=== PATIENT | male | born 1955 | race Caucasian/White ===

== ENCOUNTER 2018-07-26 06:09 | Inpatient (IN) | payer OTHER, MEDICARE, SELFPAY ==
[2018-07-13 12:46] VITALS: BMI 28.8
[2018-07-26] VITALS (12 sets, daily range): BP systolic 99–164; BP diastolic 55–109; PULSE 56–87; RESP 12–19; TEMP 36.4–37.1; O2SAT 93–97; BMI 28.8
--- NOTE | 2018-07-26 06:30 | DI.RAD.S_ITS ---
PROCEDURE: XR KNEE RT 1TO2V INDICATIONS: prosthesis placement right total knee TECHNIQUE: 2 view(s) of the knee acquired. [facility], JUANA, XR KNEE ARTHRITIC SERIES RT, 05/09/2018, 10:44. FINDINGS: Bones: Patient is status post knee joint arthroplasty. Hardware components are in expected positions. Visualized bony structures are intact. Soft tissues: Overlying postoperative changes are noted. Expected postsurgical changes are identified within the overlying soft tissues with areas of soft tissue air, edema, and fluid. No unexpected radiopaque foreign bodies are evident. IMPRESSION: Expected post surgical changes related to a total right knee arthroplasty. Dictated by: Wei Aquino M.D. on 07/26/2018 at 11:18 Approved by: Wei Aquino M.D. on 07/26/2018 at 11:19
[2018-07-26] MEDS: LACTATED RINGERS 1,000 ML 42 ML IV ×2 (07:00→09:19)
[2018-07-26] MEDS: ACETAMINOPHEN 325 MG TABLET 975 MG PO ×2 (07:12→13:38)
[2018-07-26] MEDS: CELECOXIB 200 MG CAPSULE PO (07:13)
[2018-07-26] MEDS: PREGABALIN 75 MG CAPSULE PO (07:13)
--- NOTE | 2018-07-26 07:30 | PC.NURSE ---
Day shift: Pt not on this AC unit at this time 0730.
--- NOTE | 2018-07-26 07:45 | PM.PREOP ---
Pre-operative Note Interval Note Pre-op Check: Yes History & Physical Reviewed by Physician and Yes Exam Performed Changes: No
--- NOTE | 2018-07-26 07:47 | P.OP_ITS ---
Operative Date/Time/Diagnoses Date of procedure: 07/26/18 Time of procedure: 09:25 Pre-op diagnosis: Right knee osteoarthritis Post-op diagnosis: same Procedure & Clinicians Procedure: Right total knee replacement Same procedure as scheduled: Yes Indications: The patient has had progressively worsening right knee pain with radiographic changes consistent with arthritis. Non-operative management has failed and the patient has requested total knee replacement. The risks, benefits and alternatives to surgery were discussed with the patient prior to proceeding. Risks discussed included, but were not limited to, failure to relieve pain, stiffness, infection, nerve damage, deep venous thrombosis, pulmonary embolism, stroke, coma, heart attack, permanent paralysis and , as well as the potential need for eventual revision of the prosthetic. Surgeon: Juanito Lima Care Professional: Aisha Johansen Click Yes if Unassisted: No Anesthesia Type: General, Spinal and Local Operative Notes Findings: Significant medial and moderate patellofemoral osteoarthritis. Closure Type: primary Specimen(s): none sent Implants & Drains: Implants used in this procedure were manufactured by the [employer] and [employer] and included the BCS II Journey total knee replacement with a size 6 Oxinium right femoral component, size 5 right non porous tibial component, 10 mm cross-linked BCS II tibial insert, and a 32 mm oval Joanna II patellar component. Applied: implant(s) Estimated Blood Loss (mL): 150 Blood products transfused: none Tourniquet time (min): 57 Procedure in detail: The patient was seen in the pre-operative area, where the patient identified the right knee as the operative site and this was marked with my initials. The patient received pre-operative antibiotics with an appropriate 1st generation cephalosporin, and was taken to the operating room and placed on the operative table in the supine position. After satisfactory anesthesia, a multimedia coordinator out was performed. The right leg was encircled with a tourniquet about the proximal thigh, and the leg was prepared from the toes to the tourniquet with ChloroPrep in the usual fashion and draped through sterile drapes. The leg was elevated and exsanguinated with Eschmark bandage and the tourniquet inflated to 250 mmHg pressure. The knee was approached through an approximately 18 cm incision centered over the patella and carried into the knee through a medial parapatellar arthrotomy. The anterior osteophytes and soft tissues were removed. The rotational landmarks of Steuben's line and the transepicondylar axis were marked on the femur with electrocautery, and intramedullary guide holes for the femur and tibia were created. The distal femoral cut was made in 6 degrees of valgus using the intramedullary guide at the primary cut setting. The proximal tibial cut was then made using the intramedullary guide, taking 9 mm of bone off the less involved side. The extension gap was checked and the rotation of the femoral component confirmed with the gap balancing system. The anterior, posterior and chamfer cuts were then made. The posterior osteophytes and soft tissues were then removed. The posterior capsule was injected with part of a mixture of 60 ml 0.25% Marcaine mixed with 20 ml Exparel and 4 mg of morphine for post-operative pain control. The remainder of this mixture was injected into the capsule and subcutaneous tissues during cement curing. The tibia was prepared with the rotation set by an extra medullary guide. Trial tibial and femoral components were then placed and the intercondylar notch cut through the femoral trial. Range of motion was 0-135 degrees, with good stability throughout the range. The patella was then cut to accommodate the patellar prosthetic. There was no need for a lateral release. The trials were then removed, and the femoral hole plugged with a bone plug. The bone was prepared with pulsatile lavage, and dried with a sponge. Cement was applied and the final prosthetics placed. Excess cement was removed during and after cement curing. After confirming there was no extruded cement posteriorly, the final tibial insert was placed. The knee was copiously irrigated and the tourniquet deflated. Hemostasis was obtained. The capsule was closed with interrupted # 2 polyester suture. The subcutaneous layer was closed with 3-0 Vicryl, and the skin with a running 3-0 V-Lock suture and SteriStrips. An Aquacel Ag dressing was applied and the patient was taken to recovery having tolerated the procedure well. Complications: none Condition: stable Disposition: PACU Plan for aftercare: The patient will be maintained on a standard total knee replacement protocol with weight bearing as tolerated. The patient will receive aspirin and sequential compression devices for DVT prophylaxis. The patient will be discharged home when safe for the home environment.
[2018-07-26] MEDS: CEFAZOLIN 2 GM/100 ML FROZ.PIGGY IV ×2 (07:53→15:40)
[2018-07-26] MEDS: TRANEXAMIC ACID 1,000 MG VIAL 1000 MG INJ ×2 (08:05→09:13)
--- NOTE | 2018-07-26 08:22 | SUR.OPER ---
Supine on padded OR bed. Pillow under head, arms secured on padded armboards <90 degree abduction. Safety belt across torso. Non-operative leg secured with tape over blanket over lower leg. Operative leg secured in DeMayo/Jeevan positioner.
[2018-07-26] MEDS: BUPIVACAINE 0.25% W/ EPI VIAL 50 ML INJ (08:31)
[2018-07-26] MEDS: MORPHINE 4 MG/ML INJ IV (08:31)
[2018-07-26] MEDS: BUPIVACAINE LIPOSOME 266 MG/20 ML VIAL INJ (08:32)
--- NOTE | 2018-07-26 10:49 | PC.NURSE ---
Day shift: Arrived on unit from PACU at approx 1045. A&Ox3. Denies any pain, chest pain or SOB. Rt leg ERA wrapped and Aquacel. Tolerating liquids. He stated that he wants to go home for sure today. Oriented to room and call light. Agrees to not get OOB w/o help from staff. PPP amd CMS ok in LLE and minimal sensation at this time RLE/foot/adams.
[2018-07-26] MEDS: LACTATED RINGERS 1,000 ML 125 ML IV (11:27)
[2018-07-26] MEDS: OXYCODONE IR 5 MG TABLET PO ×2 (11:27→12:05)
[2018-07-26] MEDS: IBUPROFEN 600 MG TABLET PO (11:34)
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
== END 2018-07-26 16:20 | disposition home or self-care (01) | DRG 470 ==
PROVIDERS: Admitting Provider Physician Assistant; Visit Provider Orthopaedic Surgery
PROC: 0SRC0JZ Replacement of Right Knee Joint with Synthetic Substitute, Open Approach (ICD-10-PCS; CPT 27447; principal; 2018-07-26 07:45)
DX: M17.11 Unilateral primary osteoarthritis, right knee (principal); F17.210 Nicotine dependence, cigarettes, uncomplicated
CPT/HCPCS: 73560; 97161; 97530; C1776; C9290; J0690; J1100; J2250; J2270; J2405; J2704; J3010

== ENCOUNTER 2018-12-19 09:27 | Inpatient (IN) | payer OTHER, MEDICARE, SELFPAY ==
[2018-07-26 11:07] VITALS: BMI 28.8
[2018-12-16 08:39] VITALS: BMI 27.8
[2018-12-19] VITALS (16 sets, daily range): BP systolic 116–155; BP diastolic 71–99; PULSE 71–94; RESP 13–20; TEMP 36.4–36.9; O2SAT 91–99; BMI 27.1
--- NOTE | 2018-12-19 | DI.RAD.S_ITS ---
PROCEDURE: XR LUMBAR SPINE 2-3V INDICATIONS: L5-S1 TLIF TECHNIQUE: 2 views of the lumbar spine were acquired. COMPARISON: None. FINDINGS: Bones: Expected postoperative alignment after L5-S1 fusion procedure with transverse pedicle screws and vertical fixation rods crossing L5-S1. An interbody disc prosthesis, cage type, is present at the L5-S1 disc space. Soft tissues: Overlying bowel gas pattern is normal. No suspicious soft tissue calcifications. IMPRESSION: Normal alignment after fusion procedure at L5-S1 with interbody disc cage prosthesis. Dictated by: Evgeny Becker M.D. on 12/19/2018 at 15:06 Approved by: Evgeny Becker M.D. on 12/19/2018 at 15:07
[2018-12-19] MEDS: LACTATED RINGERS 1,000 ML 42 ML IV ×2 (09:58→14:28)
--- NOTE | 2018-12-19 10:18 | SUR.PREOP ---
pt reports has numbness and tingling in all four extremities that is chronic and baseline for him.
[2018-12-19] MEDS: CEFAZOLIN 2 GM/100 ML FROZ.PIGGY IV ×2 (12:26→21:31)
--- NOTE | 2018-12-19 13:00 | SUR.OPER ---
Prone on spine table, head in foam head support, padded chest and pelvic supports, gel pad at knees, lower legs supported by pillows; nipples, genitalia and toes free of pressure, arms secured on foam padded arm boards at <90 degrees abduction. Tape over blanket at thigh secured to table.
[2018-12-19] MEDS: BUPIVACAINE LIPOSOME 266 MG/20 ML VIAL INJ (13:11)
[2018-12-19] MEDS: BUPIVACAINE 0.25% W/ EPI 30 ML VIAL INJ (13:11)
[2018-12-19] MEDS: ACETAMINOPHEN IV 1,000 MG/100 ML VIAL 400 MG IV (13:45)
--- NOTE | 2018-12-19 15:09 | PM.OP.1 ---
Operative Date/Time/Diagnoses Date of procedure: 12/19/18 Time of procedure: 12:11 Pre-op diagnosis: 1. L4-5, L5-S1 spondylosis with radiculopathy 2. L4-5, L5-S1 spinal stenosis with history of L5-S1 laminectomy Post-op diagnosis: same Procedure & Clinicians Procedure: 1. L5-S1 Postero-lateral and posterior interbody fusion 2. L5-S1 interbody cage placement. 3. L5-S1 decompressive laminectomy with bilateral facetecomies 4. L5-S1 Posterior non-segmental instrumentation 5. L4-5 right hemilaminectomy 6. [employer] of bone marrow from iliac crest 7. Utilization of microsurgical technique and operating microscope Same procedure as scheduled: Yes Indications: Patient has been having chronic back pain and worsening lumbar radiculopathy. Patient failed multiple conservative management with worsening pain weakness and numbness in her lower extremity. Patient has been having difficulty performing activity of daily living. After discussing risks benefits of treatment options, patient elected proceed with surgery. Surgeon: Michelle Lin Server Assistant: Maura Pimentel Click Yes if Unassisted: No Anesthesia Type: General Operative Notes Closure Type: primary Specimen(s): none sent Prosthetic devices, grafts, tissues, transplants, or devices: Globus revolve screws, Rise cage Estimated Blood Loss (mL): 50 Blood products transfused: none Procedure in detail: Patient was seen in the preoperative area. Risks and benefits of the surgery was discussed with the patient. Informed consent was obtained from the patient and placed in the chart. Surgical site was marked. Patient was taken to the operative room. General anesthesia was administered. Prophylactic antibiotic was given to the patient less than 30 min before the incision was made. Patient was placed into a prone position on the Vadim table. Patient's back was then prepped and draped in the sterile fashion. Time-out was performed at this time. Using AP and lateral C-arm imaging the interval between L4-5, L5-S1 was identified and marked on patient's back. A 2 inch incision 2 in from midline was made on the right side first. The fascia was incised in line with skin incision. Globus MARS retractors was placed inside the incision and docked onto the L5 lamina. Using microsurgical technique and operating microscope, a L5 laminectomy and L5-S1 facetectomy was performed using a Kerrison rongeur. The disc space at L5-S1 was identified. And a total diskectomy was performed at L5-S1 level. The endplates were decorticated using a rasp and shaver. The total diskectomy and decortication was performed at L5-S1 level in order to to accomplish a L5-S1 fusion. The local bone from the laminectomy and facetectomy was saved for local bone grafting. After the total diskectomy and decortication was completed, Bio4 bone graft material was combined with local bone that was harvested earlier. At this time, a separate skin is incision was made over the iliac crest. A Jamshidi needle was inserted into the iliac crest through a separate skin incision. 5 cc of bone marrow aspiration was obtained through the separate skin incision using a Jamshidi needle from the iliac crest. The bone marrow aspiration was combined with local bone and the Bio4 bone grafting material. The bone grafting material was placed into the L5-S1 interbody space along with a expandable cage. The cage was expanded to its maximum height using the torque limiting screwdriver. At this time the MARS retractor was redirected over the L4 lamina. Using microsurgical technique and operating microscope, a L4-5 heminectomy was performed using the Kerrison rongeur. The ligamentum flavum was also resected at the side of the hemilaminectomy for further decompression of the epidural space. At this time a mirror image incision was made on the left side. The fascia was incised in line with the skin incision. Globus MARS retractor was inserted and docked onto the L5-S1 posterolateral gutter. Using the power drill, posterior-lateral decortication was performed at L5-S1 level until bleeding cortical bone was identified. The remaining bone grafting material was placed into the L5-S1 posterior lateral gutter he order to accomplish posterolateral fusion at the L5-S1 level. Using the double C-arm technique, pedicle screws were placed into the L5 and S1 pedicles bilaterally. This was done by placing the Jamshidi needle into the pedicles, then placing the guidewires over the Jamshidi needle, and finally placing the cannulated screws over the guidewires bilaterally. After the pedicle screws were placed, 2 titanium rods was locked into the heads of the pedicle screws using locking caps and torque limiting screwdriver. After all the hardware was placed, and confirmed with AP and lateral C-arm imaging, the wound was then irrigated with sterile normal saline and packed with Ray-Dorothy gauze for 3 min to accomplish hemostasis. After the gauze was removed the deep fascia was closed with #1 Vicryl suture. The subcutaneous layer was closed with 2-0 Vicryl. The skin was closed with skin tex. Patient tolerated the procedure well. There were no complications. Complications: none Condition: stable Disposition: PACU Plan for aftercare: Admit to inpatient hospital
--- NOTE | 2018-12-19 15:15 | P.OP_ITS ---
Operative Date/Time/Diagnoses Date of procedure: 12/19/18 Time of procedure: 12:11 Pre-op diagnosis: 1. L4-5, L5-S1 spondylosis with radiculopathy 2. L4-5, L5-S1 spinal stenosis with history of L5-S1 laminectomy Post-op diagnosis: same Procedure & Clinicians Procedure: 1. L5-S1 Postero-lateral and posterior interbody fusion 2. L5-S1 interbody cage placement. 3. L5-S1 decompressive laminectomy with bilateral facetecomies 4. L5-S1 Posterior non-segmental instrumentation 5. L4-5 right hemilaminectomy 6. [place] of bone marrow from iliac crest 7. Utilization of microsurgical technique and operating microscope Same procedure as scheduled: Yes Indications: Patient has been having chronic back pain and worsening lumbar radiculopathy. Patient failed multiple conservative management with worsening pain weakness and numbness in her lower extremity. Patient has been having difficulty performing activity of daily living. After discussing risks benefits of treatment options, patient elected proceed with surgery. Surgeon: Michelle Lin Mailing Specialist: Maura Pimentel Click Yes if Unassisted: No Anesthesia Type: General Operative Notes Closure Type: primary Specimen(s): none sent Prosthetic devices, grafts, tissues, transplants, or devices: Globus revolve screws, Rise cage Estimated Blood Loss (mL): 50 Blood products transfused: none Procedure in detail: Patient was seen in the preoperative area. Risks and benefits of the surgery was discussed with the patient. Informed consent was obtained from the patient and placed in the chart. Surgical site was marked. Patient was taken to the operative room. General anesthesia was administered. Prophylactic antibiotic was given to the patient less than 30 min before the incision was made. Patient was placed into a prone position on the Vadim table. Patient's back was then prepped and draped in the sterile fashion. Time- out was performed at this time. Using AP and lateral C-arm imaging the interval between L4-5, L5-S1 was identified and marked on patient's back. A 2 inch incision 2 in from midline was made on the right side first. The fascia was incised in line with skin incision. Globus MARS retractors was placed inside the incision and docked onto the L5 lamina. Using microsurgical technique and operating microscope, a L5 laminectomy and L5-S1 facetectomy was performed using a Kerrison rongeur. The disc space at L5-S1 was identified. And a total diskectomy was performed at L5- S1 level. The endplates were decorticated using a rasp and shaver. The total diskectomy and decortication was performed at L5-S1 level in order to to accomplish a L5-S1 fusion. The local bone from the laminectomy and facetectomy was saved for local bone grafting. After the total diskectomy and decortication was completed, Bio4 bone graft material was combined with local bone that was harvested earlier. At this time, a separate skin is incision was made over the iliac crest. A Jamshidi needle was inserted into the iliac crest through a separate skin incision. 5 cc of bone marrow aspiration was obtained through the separate skin incision using a Jamshidi needle from the iliac crest. The bone marrow aspiration was combined with local bone and the Bio4 bone grafting materi al. The bone grafting material was placed into the L5-S1 interbody space along with a expandable cage. The cage was expanded to its maximum height using the torque limiting screwdriver. At this time the MARS retractor was redirected over the L4 lamina. Using microsurgical technique and operating microscope, a L4-5 heminectomy was performed using the Kerrison rongeur. The ligamentum flavum was also resected at the side of the hemilaminectomy for further decompression of the epidural space. At this time a mirror image incision was made on the left side. The fascia was incised in line with the skin incision. Globus MARS retractor was inserted and docked onto the L5-S1 posterolateral gutter. Using the power drill, posterior- lateral decortication was performed at L5-S1 level until bleeding cortical bone was identified. The remaining bone grafting material was placed into the L5-S1 posterior lateral gutter he order to accomplish posterolateral fusion at the L5- S1 level. Using the double C-arm technique, pedicle screws were placed into the L5 and S1 pedicles bilaterally. This was done by placing the Jamshidi needle into the pedicles, then placing the guidewires over the Jamshidi needle, and finally placing the cannulated screws over the guidewires bilaterally. After the pedicle screws were placed, 2 titanium rods was locked into the heads of the pedicle screws using locking caps and torque limiting screwdriver. After all the hardware was placed, and confirmed with AP and lateral C-arm imaging, the wound was then irrigated with sterile normal saline and packed with Ray-Dorothy gauze for 3 min to accomplish hemostasis. After the gauze was removed the deep fascia was closed with #1 Vicryl suture. The subcutaneous layer was closed with 2-0 Vicryl. The skin was closed with skin tex. Patient tolerated the procedure well. There were no complications. Complications: none Condition: stable Disposition: PACU Plan for aftercare: Admit to inpatient hospital
[2018-12-19] MEDS: HYDROMORPHONE 2 MG INJ 0.5 MG IV ×3 (15:30→15:51)
--- NOTE | 2018-12-19 15:53 | SUR.PHASEI ---
1551 Rx x3 for back pain, patient states that it is much better than the leg pain he endured pre-operatively. Patient awake, oriented, pleasant, tolerating PO well/no nausea. Skin warm and dry, resp even and regular.
--- NOTE | 2018-12-19 16:08 | SUR.PHASEI ---
1540 late entry + strength/motion/sensation in LE. States that his leg pain is much better than it was pre-operatively.
--- NOTE | 2018-12-19 16:13 | SUR.PHASEI ---
Error - did not realize that there were multiple pain sites to document; patient denies knee pain.
--- NOTE | 2018-12-19 16:33 | SUR.PHASEI ---
1618 to room 203; bed down and locked, call light within reach. Clothing bag and dentures (labeled) to room with patient. He declined to put them in and wanted them taken to the room in the container. SCDs on, VSS, A&O, resp unlabored, skin warm and dry, IV site unchanged. No questions from patient or staff report updated w/RN.
[2018-12-19] MEDS: SODIUM CHLORIDE 0.9% 1,000 ML 100 ML IV (17:22)
[2018-12-19] MEDS: OXYCODONE IR 5 MG TABLET 10 MG PO ×2 (17:32→21:35)
--- NOTE | 2018-12-19 18:20 | PC.NURSE ---
Addendum entered by Colleen Stockton R.N. 12/19/18 21:59: Pt refusing SCD's at HS. IVF continue as per orders. Dsg CDI Med @ 2135 w/oxycodone for discomfort. Stable post op course. Call light w/in reach, bed alarm on for pt safety. Continue w/plan of care. Addendum entered by Colleen Stockton R.N. 12/19/18 18:40: IS teaching, pt reached 3500 w/o incidnece. Original Note: Pt arrived from PACU @ 1626, Alert/oriented. IVF infusing into the LFA via pump as per orders. Dsg to back CDI. Lungs clear, SpO2 98% RA Foot SCD in place. Call light w/in reach.
[2018-12-19] MEDS: NICOTINE 14 PATCH 14 MG TOP (18:31)
--- NOTE | 2018-12-20 01:04 | PC.NURSE ---
2300- Pt POD#0 LAMI w/ 3 surgical dressings present on the back CDI. Pt has not moved OOB yet, waiting for PT in the AM. A+Ox4 w/ NS running as ordered into L forearm. Pt voiding in urinal w/o difficulty; VSS on RA; denies pain. 0030- IV fluids shut off per pt's request & protocol. Taking PO intake w/o nausea.
[2018-12-20 05:10] VITALS: BP 136/78; PULSE 75; RESP 15; TEMP 36.9; O2SAT 98
[2018-12-20] MEDS: CEFAZOLIN 2 GM/100 ML FROZ.PIGGY IV (05:12)
[2018-12-20 06:20] LABS: Hematocrit 40.9 % (41-53); Hemoglobin 14.1 g/dL (13.5-17.5)
--- NOTE | 2018-12-20 07:28 | PM.PNPO.1 ---
Subjective Date Patient Seen: 12/20/18 Exam Vital Signs (past 8 hours): - 12/19/18 23:30 12/19/18 23:37 12/20/18 05:10 Temperature 98.4 F 98.2 F 98.5 F Pulse Rate 94 H 71 75 Respiratory Rate 17 18 15 Blood Pressure 142/80 H 128/71 136/78 Pulse Oximetry 93 95 98 Oxygen Delivery Method Room Air Oxygen Flow Rate 0 Narrative Exam Narrative: Well-developed, well-nourished, no acute distress. Alert and oriented to person, place, and time. Dressing on lumbar spine is clean, dry, and intact with no signs of drainage. Minimal erythema and generalized swelling around the surgical site. Neurovascularly intact in bilateral lower extremities with soft and compressible calves. Range of motion intact bilateral lower extremities. Objective Labs Result Diagrams: 12/20/18 05:56 Labs: Laboratory Results - last 24 hr 12/20/18 05:56 Hgb 14.1 Hct 40.9 L Assessment & Plan Post-op Postoperative Procedures Operation Date: 12/19/18 11:45 Actual Procedures Side Surgeon p L4-5 Hemilaminectomy, L5-S1 TLIF w/posterior instrumentation Not Applicable Michelle Lin MD 1. POD #1 s/p above procedure-PT/OT, pain control. Quality VTE Deep Vein Thrombosis/Pulmonary Embolism Present on Admission: No
[2018-12-20 07:35] VITALS: BP 165/92; PULSE 75; RESP 16; TEMP 36.6; O2SAT 99
--- NOTE | 2018-12-20 07:46 | PM.DS.1 ---
History of Present Illness Date Patient Seen: 12/20/18 Chief complaint: [id number] Narrative: Patient seen bedside s/p R. L4-5 hemilamenectomy and L5-S1 TLIF by Dr. Lin on 12/19/18. Patient is POD #1. He is doing well, is currently not needing pain medication and is ambulating well with his walker. He has expressed understanding of his lumbar restrictions. Denies N/V, CP, SOB, and calf pain. He would like to go home today. Discharge Providers Date of admission: 12/19/18 09:27 Discharge Date: 12/20/18 Consults: 12/16/18 09:52 Consult to Respiratory Therapy Evaluate & Treat Comment: Physician Instructions: Evaluate and treat Consult to Flash Ranging Crewmember Routine Comment: 12/19/18 10:10 Consult to Respiratory Therapy Evaluate & Treat Comment: Physician Instructions: Evaluate and treat 12/19/18 17:02 Consult to Occupational Therapy Evaluate & Treat Comment: Physician Instructions: Evaluate and treat Consult to Physical Therapy Evaluate & Treat Comment: Physician Instructions: Evaluate and Treat Discharge provider: Aisha Johansen PA-C Summary Discharge Diagnosis: 1. L4-5, L5-S1 spondylosis with radiculopathy 2. L4-5, L5-S1 spinal stenosis with history of L5-S1 laminectomy Hospital Course: Patient admitted to the hospital s/p L4-5 right hemilaminectomy and L5-S1 TLIF on 12/19/18. Patient tolerated the procedure well with no major complications. They were transferred to the acute care floor where they were placed on the standard lumbar fusion post-operative pathway and protocol. They were seen by physical therapy who recommended that they be discharged home. They were stable and ready for discharge on 12/20/18. Exam Vital Signs (past 8 hours): - 12/20/18 05:10 Temperature 98.5 F Pulse Rate 75 Respiratory Rate 15 Blood Pressure 136/78 Pulse Oximetry 98 Oxygen Delivery Method Room Air Oxygen Flow Rate 0 Narrative Exam Narrative: Well-developed, well-nourished, no acute distress. Alert and oriented to person, place, and time. Dressing on lumbar spine is clean, dry, and intact with no signs of drainage. Minimal erythema and generalized swelling around the surgical site. Neurovascularly intact in bilateral lower extremities with soft and compressible calves. Range of motion intact bilateral lower extremities. Objective Labs Result Diagrams: 12/20/18 05:56 Labs: Laboratory Results - last 24 hr 12/20/18 05:56 Hgb 14.1 Hct 40.9 L Discharge Plan Discharge Plan Patient Disposition: Home Discharge Med Rec/Prescriptions Prescriptions: New acetaminophen 325 mg Tablet 650 mg PO Q6HR PRN (Reason: Pain, Mild (1-3)) Qty: 0 RF: 0 docusate sodium [DOK] 100 mg Capsule 100 mg PO BID Qty: 0 RF: 0 oxycodone 5 mg Tablet 5 mg PO Q4HR PRN (Reason: pain) Qty: 40 RF: 0 hydroxyzine pamoate 25 mg Capsule 25 mg PO Q4HR PRN (Reason: muscle spasm) Qty: 50 RF: 0 Follow up/Referrals: Michelle Lin MD [Physician] - (on 12/30/18 at your previously scheduled post-operative appointment.) Provider Discharge Instructions Diet: Diet as Tolerated Activity: Weightbearing as tolerated, no bending, lifting greater than 5 lbs, or twisting. Cold/Heat Therapy: Apply ice to affected area for 20 minutes at a time at least hourly while awake. Other treatments: No anti-inflammatories such as ibuprofen or naproxen for 90 days. Skin/Wound/Dressing Care Report to your healthcare provider any signs of infection, such as:: chills, fever, night sweats, unusual drainage and unusual redness Dressing: Keep dressing clean, dry, and intact. May shower with it in place but no soaking. Visit Report/Discharge Packet Instructions: DI for Transforaminal Lumbar Interbody Fusion Stand Alone Forms: Surgery Discharge Discharge Data Attending Provider: Michelle Lin Admit Date/Time: 12/19/18 09:27 Quality VTE Deep Vein Thrombosis/Pulmonary Embolism Present on Admission: No
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
--- NOTE | 2018-12-20 10:17 | PC.NURSE ---
Addendum entered by Madhavi Agudelo R.N. 12/20/18 10:19: Went over dc meds and instructions with patient, questions answered. Pt taken via wc to vehicle drivin by spouse, patient had all belongings. Original Note: Pt alert, oriented rates pain to back to 6/10, denies need for pain medicine. CMS+.
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
== END 2018-12-20 10:20 | disposition home or self-care (01) | DRG 455 ==
PROVIDERS: Admitting Provider Orthopaedic Surgery Orthopaedic Surgery of the Spine; Visit Provider Orthopaedic Surgery Orthopaedic Surgery of the Spine
PROC: 0SG30AJ Fusion of Lumbosacral Joint with Interbody Fusion Device, Posterior Approach, Anterior Column, Open Approach (ICD-10-PCS; principal; 2018-12-19 11:45)
DX: M48.07 Spinal stenosis, lumbosacral region (principal); M47.27 Other spondylosis with radiculopathy, lumbosacral region; M48.061 Spinal stenosis, lumbar region without neurogenic claudication; M96.1 Postlaminectomy syndrome, not elsewhere classified; M21.371 Foot drop, right foot; M43.17 Spondylolisthesis, lumbosacral region; F17.210 Nicotine dependence, cigarettes, uncomplicated
CPT/HCPCS: 36415; 72100; 76000; 85014; 85018; 97162; 97165; 99406; C1776; C9290; J0131; J0330; J0690; J1100; J1170; J2250; J2405; J2704; J3010